=== PATIENT | male | born 1950 | race Caucasian/White ===

== ENCOUNTER 2023-02-13 10:44 | Inpatient (IN) | payer MEDICARE, MEDICAID ==
[~2023-02-13] VITALS: Ht 182.9 cm; Wt 62.1 kg
[2023-02-13] VITALS (10 sets, daily range): BP systolic 78–104; BP diastolic 50–79; PULSE 65–93; RESP 13–18; TEMP 97.7–98.2; O2SAT 95–100
[2023-02-13] MEDS ORDERED: normal saline 1000ml 1,000 ML IV ONE (12:20)
[2023-02-13 14:03] LABS: BASOPHILS # (AUTO) 0.1 X10'3 (0-0.2); BASOPHILS % (AUTO) 0.9 % (0-1); EOSINOPHILS # (AUTO) 0.3 X10'3 (0-0.9); EOSINOPHILS % (AUTO) 2.9 % (0-6); HEMOGLOBIN 13.3 g/dl (14.0-17.9); LYMPHOCYTES # (AUTO) 3.3 X10'3 (1.1-4.8); LYMPHOCYTES % (AUTO) 35.1 % (21-51); MEAN CORPUSCULAR HEMOGLOBIN 28.3 PG (27.0-31.0); MEAN CORPUSCULAR HGB CONC 33.2 g/dL (33.0-36.5); MEAN CORPUSCULAR VOLUME 85.5 FL (78-98); MEAN PLATELET VOLUME 8.8 FL (7.4-10.4); MONOCYTES # (AUTO) 0.7 X10'3 (0-0.9); MONOCYTES % (AUTO) 7.8 % (2-12); NEUTROPHILS % (AUTO) 53.3 % (42-75); PLATELET COUNT 262 X10'3 (140-440); RED BLOOD COUNT 4.68 X10'6 (4.70-6.10); RED CELL DISTRIBUTION WIDTH 17.6 % (11.5-14.5); WHITE BLOOD COUNT 9.3 X10'3 (4.5-11.0)
[2023-02-13 14:06] LABS: APTT 30 SECONDS (22-32); PROTHROMBIN TIME 10.9 SECONDS (9.0-12.0)
[2023-02-13 14:09] LABS: ALANINE AMINOTRANSFERASE 21 U/L (12-78); ALBUMIN 2.5 G/DL (3.4-5.0); ALBUMIN/GLOBULIN RATIO 0.7 (1.1-1.5); ALKALINE PHOSPHATASE 81 IU/L (46-116); ANION GAP 6 (8-16); ASPARTATE AMINO TRANSFERASE 27 U/L (10-37); BILIRUBIN,TOTAL 0.4 MG/DL (0.1-1.0); BLOOD UREA NITROGEN 14 MG/DL (7-18); BUN/CREATININE RATIO 14.4 (10.0-20.0); CALCIUM 8.5 MG/DL (8.5-10.1); CHLORIDE 102 MMOL/L (99-107); CREATININE 0.97 MG/DL (0.60-1.10); GLUCOSE 88 MG/DL (70-104); LIPASE 13 U/L (16-77); POTASSIUM 4.5 MMOL/L (3.5-5.1); SODIUM 137 MMOL/L (135-145); TOTAL CARBON DIOXIDE 29.1 MMOL/L (24-32); TOTAL PROTEIN 6.1 G/DL (6.4-8.2); eCRCL 57 ML/MIN; eGFR 76 ML/MIN
[2023-02-13] MEDS ORDERED: mag hydrox/Alum hydrox/simeth 30ml oral suspension PO PRN (14:10)
[2023-02-13] MEDS ORDERED: morphine 2 MG/ML inj. syringe IV PRN (14:10)
[2023-02-13] MEDS ORDERED: magnesium hydroxide 30ml (MOM) UD suspension PO PRN (14:10)
[2023-02-13] MEDS ORDERED: magnesium 4gm in 100ml NS 100 ML IV PRN (14:10)
[2023-02-13] MEDS ORDERED: HYDROcodone/acetaminophen 5mg/325mg tablet PO PRN (14:10)
[2023-02-13] MEDS ORDERED: ondansetron/PF 4mg/2ml inj IV PRN (14:10)
[2023-02-13] MEDS ORDERED: magnesium 2GM in 50ml NS 50 ML IV PRN (14:10)
[2023-02-13] MEDS ORDERED: HYDROcodone/acetaminophen 10/325mg tab PO PRN (14:10)
[2023-02-13] MEDS ORDERED: potassium Cl 20 mEq SR tablet PO PRN ×2 (14:10)
[2023-02-13] MEDS ORDERED: magnesium Cl slow-release 64mg tablet PO PRN (14:10)
[2023-02-13] MEDS ORDERED: acetaminophen 325mg tablet PO PRN ×2 (14:10)
[2023-02-13] MEDS ORDERED: potassium Cl 40MEQ/1/2NS 520ml 520 ML IV PRN (14:10)
[2023-02-13] MEDS: normal saline 1000ml 1,000 ML IV SCH ×2 (14:45→21:03)
[2023-02-13] MEDS ORDERED: iohexol 300mg/ml 100ml inj. ONE (15:20)
[2023-02-13] MEDS ORDERED: glucagon, human recombinant 1mg kit ONE (15:43)
[2023-02-13] MEDS ORDERED: LIDOcaine Viscous 15ml cup ONE (15:43)
[2023-02-13] MEDS ORDERED: fentaNYL/PF 50MCG/1 ML 2ML syringe ONE ×3 (16:00→16:02)
[2023-02-13] MEDS ORDERED: MIDAZolam 1 MG/ML 5ML VIAL ONE (16:02)
[2023-02-13] MEDS ORDERED: levoFLOXACIN-Levaquin 500mg/D5 100 ML IV ONE (16:17)
--- NOTE | 2023-02-13 16:57 | NUR ---
Patient in room ED 8. I have received report from Marie in the ED and had the opportunity to ask questions and assume patient care.
[2023-02-13] MEDS ORDERED: MIDO5TAB4 PO (17:50)
[2023-02-13] MEDS ORDERED: BACL10TA2 PO (17:50)
[2023-02-13] MEDS ORDERED: GABA300C PO (17:50)
[2023-02-13] MEDS ORDERED: HEPARIN SQ (17:50)
[2023-02-13] MEDS ORDERED: POTA-207 PO (17:50)
[2023-02-13] MEDS ORDERED: ATOR20TA66 PO (17:50)
[2023-02-13] MEDS ORDERED: MULT-1085 PO (17:50)
[2023-02-13] MEDS ORDERED: LOP12.5T PO (17:50)
[2023-02-13] MEDS ORDERED: DRON2.5C18 PO (17:50)
[2023-02-13] MEDS ORDERED: OXYC10TA47 PO (17:50)
[2023-02-13] MEDS ORDERED: OXYC10TA57 PO (17:50)
[2023-02-13] MEDS ORDERED: OMEP20CA16 PO (17:50)
[2023-02-13] MEDS ORDERED: POLY119P2 PO (17:50)
[2023-02-13] MEDS ORDERED: OXYcodone immediate-release 10MG tablet PO PRN (18:10)
[2023-02-13] MEDS ORDERED: baclofen 10mg tablet PO PRN (18:10)
--- NOTE | 2023-02-13 18:16 | NUR ---
Received call that this patient just arrived to the floor. Shift change has already began.
--- NOTE | 2023-02-13 18:45 | NUR ---
Problems reprioritized. Patient report given, questions answered & plan of care reviewed with John Overton
[2023-02-13] MEDS: docusate sod 100mg capsule PO SCH (20:00)
[2023-02-13] MEDS: metoprolol tartrate 12.5mg (1/2 tablet) PO SCH (20:00)
[2023-02-13] MEDS: K and/or MAG REPLACEMENT MC SCH (20:00)
[2023-02-13] MEDS: gabapentin 300mg capsule PO SCH (22:29)
[2023-02-13] MEDS: oxyCODONE SR 10mg (sust. release) tab PO PRN (22:34)
[2023-02-14] VITALS (17 sets, daily range): BP systolic 84–130; BP diastolic 50–81; PULSE 67–106; RESP 12–16; TEMP 96.3–98.3; O2SAT 95–100
[2023-02-14] MEDS: midodrine 5mg tablet PO SCH ×3 (00:21→16:25)
--- NOTE | 2023-02-14 04:43 | NUR ---
HARVEY documentation: I have reviewed and agree with all interventions, assessments performed and documented by John GABRIEL
[2023-02-14] MEDS: oxyCODONE SR 10mg (sust. release) tab PO PRN (05:11)
--- NOTE | 2023-02-14 06:15 | NUR ---
REPORT GIVEN BY DUSTIN GABRIEL
[2023-02-14 06:28] LABS: BASOPHILS # (AUTO) 0.1 X10'3 (0-0.2); EOSINOPHILS # (AUTO) 0.3 X10'3 (0-0.9); EOSINOPHILS % (AUTO) 3.2 % (0-6); HEMATOCRIT 37.8 % (42.0-52.0); HEMOGLOBIN 12.5 g/dl (14.0-17.9); LYMPHOCYTES # (AUTO) 3.3 X10'3 (1.1-4.8); LYMPHOCYTES % (AUTO) 38.6 % (21-51); MEAN CORPUSCULAR HEMOGLOBIN 28.2 PG (27.0-31.0); MEAN CORPUSCULAR VOLUME 85.3 FL (78-98); MEAN PLATELET VOLUME 8.7 FL (7.4-10.4); MONOCYTES # (AUTO) 0.4 X10'3 (0-0.9); MONOCYTES % (AUTO) 4.8 % (2-12); NEUTROPHILS # (AUTO) 4.5 X10'3 (1.8-7.7); NEUTROPHILS % (AUTO) 52.4 % (42-75); PLATELET COUNT 234 X10'3 (140-440); RED BLOOD COUNT 4.43 X10'6 (4.70-6.10); RED CELL DISTRIBUTION WIDTH 17.4 % (11.5-14.5); WHITE BLOOD COUNT 8.6 X10'3 (4.5-11.0)
--- NOTE | 2023-02-14 06:28 | NUR ---
Report to Marsha HERNANDEZ
[2023-02-14 06:45] LABS: ALBUMIN 2.2 G/DL (3.4-5.0); ANION GAP 12 (8-16); BLOOD UREA NITROGEN 9 MG/DL (7-18); BUN/CREATININE RATIO 12.5 (10.0-20.0); CALCIUM 8.3 MG/DL (8.5-10.1); CHLORIDE 103 MMOL/L (99-107); CREATININE 0.72 MG/DL (0.60-1.10); GLUCOSE 70 MG/DL (70-104); MAGNESIUM 1.7 MG/DL (1.5-2.4); PHOSPHORUS 4.1 MG/DL (2.3-4.5); POTASSIUM 4.2 MMOL/L (3.5-5.1); SODIUM 138 MMOL/L (135-145); TOTAL CARBON DIOXIDE 23.2 MMOL/L (24-32); eCRCL 77 ML/MIN; eGFR > 90 ML/MIN
[2023-02-14] MEDS: potassium Cl 20 mEq SR tablet PO SCH (08:00)
[2023-02-14] MEDS: atorvastatin 20mg tablet PO SCH (08:00)
[2023-02-14] MEDS: docusate sod 100mg capsule PO SCH ×2 (08:00→20:00)
[2023-02-14] MEDS: metoprolol tartrate 12.5mg (1/2 tablet) PO SCH ×2 (08:00→20:00)
[2023-02-14] MEDS: polyethylene glycol 3350 17gm powd pack PO SCH (08:00)
[2023-02-14] MEDS: K and/or MAG REPLACEMENT MC SCH ×2 (08:00→20:00)
[2023-02-14] MEDS: multivitamins, therapeutics tablet PO SCH (08:00)
[2023-02-14] MEDS: pantoprazole 40mg Tablet.DR PO SCH (08:32)
[2023-02-14] MEDS: gabapentin 300mg capsule PO SCH ×4 (08:32→21:00)
--- NOTE | 2023-02-14 14:58 | NUR ---
Malnutrition consult: Pt reports greater than 34 lb wt loss with decreased appetite/PO intake per malnutrition risk screen with RN. Pt seen at bedside, reports UBW in the 200s and states wt was just taken prior to RD visit with resulting weight 137 lbs. Unfortunately no recent wt hx in EMR to confirm wt changes. Pt states wt loss occurred secondary to decreased appetite for four months d/t CABG procedure and getting COVID. Unable to obtain much information from pt as pt agitated though pt denied food allergies or difficulty chewing/swallowing. RD attempted to provide pt with ONS coupons however pt adamantly declined stating he knows they taste like shit despite reporting never having Ensure before. Pt did accept RD contact information and pt was encouraged to reach out if needed. TC to ANTONETTE Young at [facility] to obtain wt hx. Per Hannah pt with documented wt h/o 94-95 kg August/September, 90 kg October 15, and 73 kg December 26. Wt hx obtained from [facility] RD confirms pt reported wt loss. Given wt hx obtained by [facility] RD and reported scaled wt of 62 kg today pt with severe wt loss of 31% in four months. Mild visible fat and muscle wasting was appreciated during RD visit. Pt currently meets criteria for severe malnutrition. Pt admit for choledocholithiasis. Currently NPO pending OR. Will continue to follow closely and make recommendations as appropriate. Recommendations: 1) Advance to regular versus heart healthy diet as medically indicated 2) NO Ensure with diet advancement per pt preference 3) Routine bowel care 4) Weekly scaled weights Addendum: 02/14/23 at [address] Amended: Links added.
[2023-02-14] MEDS ORDERED: proCHLORperazine 10 MG/2 ml inj IV PRN (17:25)
[2023-02-14] MEDS ORDERED: morphine 4 MG/ML inj SYRINge IV PRN (17:25)
[2023-02-14] MEDS ORDERED: meperidine/PF 25mg/ml syringe IV PRN ×3 (17:25)
[2023-02-14] MEDS ORDERED: ringers solution, lacted 1,000 ML IV SCH (17:25)
[2023-02-14] MEDS ORDERED: morphine 2 MG/ML inj. syringe IV PRN ×2 (17:25→23:20)
[2023-02-14] MEDS ORDERED: ondansetron/PF 4mg/2ml inj IV PRN (17:25)
[2023-02-14] MEDS ORDERED: fentaNYL/PF 50MCG/1 ML 2ML syringe ONE (17:31)
[2023-02-14] MEDS ORDERED: rocuronium 10mg/ml inj IV ONE ×2 (17:31→18:15)
[2023-02-14] MEDS ORDERED: propofol inj 20 ML IV ONE (17:31)
[2023-02-14] MEDS ORDERED: sevoflurane 250ml liquid IH ONE (17:41)
[2023-02-14] MEDS ORDERED: BUPIVAcaine 2.5mg/ml inj 50ml vial (contains preservative) ONE (17:44)
[2023-02-14] MEDS ORDERED: ceFOXitin 1000 MG inj ONE ×2 (18:15)
[2023-02-14] MEDS ORDERED: dexamethasone sod phosphate 4mg/ml inj. ONE (18:15)
[2023-02-14] MEDS ORDERED: albumin (Human) 5% 250ml 250 ML IV ONE (18:36)
[2023-02-14] MEDS ORDERED: acetaminophen 1,000mg/100ml IV 100 ML IV ONE (18:36)
[2023-02-14] MEDS ORDERED: BUPIVAcaine 0.25% w/Epi /PF 30ml vial IJ ONE (18:37)
[2023-02-14] MEDS ORDERED: ondansetron/PF 4mg/2ml inj ONE (18:44)
[2023-02-14] MEDS ORDERED: sugammadex 200mg/2ml injection IV ONE (18:45)
--- NOTE | 2023-02-14 19:00 | NUR ---
Received from OR via , accompanied by Anesthesiologist and report given by Anesthesiolgist. PATIENT A&OX4, DENIES PAIN, V/S WNL, SCD ON , PIV 20G LUE, LARGE ABDOMEN DRESSING W/ MELISSA DRAIN CDI WITH MINIMAL OUTPUT TO MELISSA
--- NOTE | 2023-02-14 19:40 | NUR ---
PATIENT A&OX4, DENIES PAIN, V/S WNL, SCD ON , PIV 20G LUE, LARGE ABDOMEN DRESSING W/ MELISSA DRAIN CDI WITH MINIMAL OUTPUT TO MELISSA 15CC. PATIENT TAKEN TO ORTHO FLOOR ROOM WITH ALL BELONGINGS AND HOOKED UP TO ALL MONITORS IN ROOM AND REPORT GIVEN TO RN WHO HAS TAKEN OVER PATIENT CARE.
[2023-02-15 00:30] VITALS: BP 84/53; PULSE 90; O2SAT 94
--- NOTE | 2023-02-15 00:41 | NUR ---
pt awake, yawning. refusing to take miderone or take a sip of water. "cause I don't want to". answered "no" to pain, nausea and other needs. call light on lap. freq VS. educated on low BP. 84/53 hr 81. map 62. will continue with q1 h VS.
[2023-02-15] MEDS: oxyCODONE SR 10mg (sust. release) tab PO PRN ×2 (01:12→11:01)
[2023-02-15] MEDS: midodrine 5mg tablet PO SCH ×3 (01:13→08:31)
[2023-02-15 01:30] VITALS: BP 90/60; PULSE 85; RESP 18; O2SAT 96
[2023-02-15 03:00] VITALS: BP 102/59; PULSE 91; RESP 12; O2SAT 96
[2023-02-15 06:00] VITALS: BP 91/51; PULSE 54; RESP 16; TEMP 96.8; O2SAT 96
[2023-02-15 06:32] LABS: BASOPHILS % (AUTO) 0.2 % (0-1); EOSINOPHILS % (AUTO) 0 % (0-6); HEMATOCRIT 37.1 % (42.0-52.0); HEMOGLOBIN 12.3 g/dl (14.0-17.9); LYMPHOCYTES # (AUTO) 2.7 X10'3 (1.1-4.8); LYMPHOCYTES % (AUTO) 29.6 % (21-51); MEAN CORPUSCULAR HEMOGLOBIN 28.5 PG (27.0-31.0); MEAN CORPUSCULAR HGB CONC 33.2 g/dL (33.0-36.5); MEAN CORPUSCULAR VOLUME 85.8 FL (78-98); MONOCYTES # (AUTO) 0.2 X10'3 (0-0.9); MONOCYTES % (AUTO) 1.7 % (2-12); NEUTROPHILS # (AUTO) 6.3 X10'3 (1.8-7.7); NEUTROPHILS % (AUTO) 68.5 % (42-75); PLATELET COUNT 227 X10'3 (140-440); RED BLOOD COUNT 4.32 X10'6 (4.70-6.10); RED CELL DISTRIBUTION WIDTH 17.4 % (11.5-14.5); WHITE BLOOD COUNT 9.2 X10'3 (4.5-11.0)
--- NOTE | 2023-02-15 06:37 | NUR ---
Patient in room ORTHO 4009. I have received report from John HERNANDEZ and had the opportunity to ask questions and assume patient care.
--- NOTE | 2023-02-15 06:38 | NUR ---
reported tod ays. noted pt resting w/o distress. need order for diet
[2023-02-15 06:45] LABS: ALBUMIN 2.4 G/DL (3.4-5.0); ANION GAP 14 (8-16); BLOOD UREA NITROGEN 9 MG/DL (7-18); BUN/CREATININE RATIO 10.8 (10.0-20.0); CALCIUM 8.4 MG/DL (8.5-10.1); CHLORIDE 103 MMOL/L (99-107); CREATININE 0.83 MG/DL (0.60-1.10); GLUCOSE 104 MG/DL (70-104); MAGNESIUM 1.7 MG/DL (1.5-2.4); PHOSPHORUS 4.6 MG/DL (2.3-4.5); POTASSIUM 4.3 MMOL/L (3.5-5.1); SODIUM 138 MMOL/L (135-145); TOTAL CARBON DIOXIDE 21.4 MMOL/L (24-32); eCRCL 71 ML/MIN; eGFR > 90 ML/MIN
[2023-02-15] MEDS: K and/or MAG REPLACEMENT MC SCH (06:48)
[2023-02-15 08:00] VITALS: RESP 16; O2SAT 4
[2023-02-15] MEDS: metoprolol tartrate 12.5mg (1/2 tablet) PO SCH (08:00)
[2023-02-15] MEDS: potassium Cl 20 mEq SR tablet PO SCH (08:00)
[2023-02-15] MEDS: polyethylene glycol 3350 17gm powd pack PO SCH (08:00)
[2023-02-15] MEDS: docusate sod 100mg capsule PO SCH (08:00)
[2023-02-15] MEDS: gabapentin 300mg capsule PO SCH ×2 (08:29→13:17)
[2023-02-15] MEDS: atorvastatin 20mg tablet PO SCH (08:30)
[2023-02-15] MEDS: pantoprazole 40mg Tablet.DR PO SCH (08:31)
[2023-02-15] MEDS: multivitamins, therapeutics tablet PO SCH (08:31)
[2023-02-15 10:00] VITALS: BP 92/50; PULSE 54; RESP 16; TEMP 97.8; O2SAT 97
[2023-02-15] MEDS ORDERED: FLU VACC QS2023-24(6MOS UP)/PF 60 MCG/0.5 ML SYRINGE IMVAC ONE (10:55)
[2023-02-15] MEDS ORDERED: pneumococcal 23-VAL P-sac vacc 25 mcg/0.5ml vial IMVAC ONE (10:55)
== END 2023-02-15 14:40 | DRG 417 ==
LOC: ER 10:44 → ED HOLD 14:13 → ORTHO 4S 18:15
PROVIDERS: ADMIT Family Medicine; ATTEND Family Medicine
PROC: 0FJB8ZZ Inspection of Hepatobiliary Duct, Via Natural or Artificial Opening Endoscopic (ICD-10-PCS; 2023-02-13)
PROC: 0FT44ZZ Resection of Gallbladder, Percutaneous Endoscopic Approach (ICD-10-PCS; principal; 2023-02-15)
PROC: 0FP4X0Z Removal of Drainage Device from Gallbladder, External Approach (ICD-10-PCS; 2023-02-15)
DX: K80.44 Calculus of bile duct with chronic cholecystitis without obstruction (principal); E43 Unspecified severe protein-calorie malnutrition; Z68.1 Body mass index [BMI] 19.9 or less, adult; I25.10 Atherosclerotic heart disease of native coronary artery without angina pectoris; K66.0 Peritoneal adhesions (postprocedural) (postinfection); Z88.8 Allergy status to other drugs, medicaments and biological substances; Z95.1 Presence of aortocoronary bypass graft
CPT/HCPCS: 36415; 43260; 71045; 80048; 80053; 82948; 83690; 83735; 84100; 85025; 85610; 85730; 86885; 86900; 86901; 93005; 93306; 99152; 99153; 99285; A4215; A4615; A4618; A4620; A6258; A6449; A7000; C1769; G0378; J0131; J0694; J1100; J1610; J1956; J2250; J2405; J2704; J3010; J3490; J7030; J7120; P9045; Q9967; S0020